=== PATIENT | male | born 1950 | race Caucasian/White ===

== ENCOUNTER → 2018-04-25 | Outpatient (CLI) | payer OTHER | END | disposition home or self-care (01) | LOC: OIH 13:27 | PROVIDERS: ATTEND Family Medicine | DX: Z13.6 Encounter for screening for cardiovascular disorders (principal) | CPT/HCPCS: 75571 ==

== ENCOUNTER 2020-07-16 16:15 | Observation (INO) | payer MEDICARE ==
[~2020-07-16] VITALS: Ht 177.8 cm; Wt 97.0 kg
[2020-07-16 16:30] LABS: BASOPHILS % (AUTO) 0.9 % (0.0-5.0); EOSINOPHILS % (AUTO) 3.8 % (0.0-8.0); HEMATOCRIT 43.8 % (42-54); LYMPHOCYTES % (AUTO) 24.6 % (21.0-51.0); MEAN CORPUSCULAR HEMOGLOBIN 32.9 pg (27.0-33.0); MEAN CORPUSCULAR HGB CONC 34.9 g/dL (32.0-36.0); MEAN CORPUSCULAR VOLUME 94.2 fL (79-99); MONOCYTES % (AUTO) 9.2 % (3.0-13.0); NEUTROPHILS % (AUTO) 61.3 % (40.0-77.0); PLATELET COUNT (AUTO) 172 K/uL (130-400); RED BLOOD CELL COUNT(AUTO) 4.65 MIL/uL (4.50-6.20); RED CELL DISTRIBUTION WIDTH 12.5 % (11.0-15.5); WHITE BLOOD COUNT (AUTO) 6.4 K/uL (4.8-10.8)
[2020-07-16] MEDS ORDERED: ASPIRIN 325 MG TABLET ONE (16:30)
[2020-07-16] MEDS ORDERED: NITROGLYCERIN 1GM/1 INCH PACKET TD ONE (16:35)
[2020-07-16 16:50] LABS: POTASSIUM 4.2 mmol/L (3.5-5.1)
[2020-07-16 16:57] LABS: ALBUMIN 3.9 g/dL (3.5-5.0); BILIRUBIN,TOTAL 0.4 mg/dL (0.2-1.0); TOTAL PROTEIN, SERUM 7.7 g/dL (6.0-8.3)
[2020-07-16 17:01] LABS: INR 1.05 (0.85-1.15); PROTHROMBIN TIME 11.2 SEC (9.6-11.6)
[2020-07-16 17:02] LABS: PARTIAL THROMBOPLASTIN TIME 25.8 SEC (26.3-35.5)
[2020-07-16 17:29] LABS: B-TYPE NATRIURETIC PEPTIDE 25 pg/mL (0-100)
[2020-07-16] MEDS ORDERED: SODIUM CHLORIDE 0.9% 1000ML 1,000 ML IV ONE (18:44)
[2020-07-16] MEDS ORDERED: ACETAMINOPHEN 325 MG TAB PO PRN (18:45)
[2020-07-16] MEDS ORDERED: NITROGLYCERIN 0.4 MG SL TAB SL PRN (18:45)
[2020-07-16] MEDS ORDERED: SODIUM CHLORIDE 0.9% 1000ML 1,000 ML IV SCH (18:45)
[2020-07-16] MEDS ORDERED: MORPHINE SULFATE 2 MG/ML 1ML SYG IVP PRN (18:45)
[2020-07-16 18:59] LABS: CHOLESTEROL 154 mg/dL (<200); HDL CHOLESTEROL 116 mg/dL (29-71); LDL DIRECT 88 mg/dL (0-99); TRIGLYCERIDES 52 mg/dL (30-200)
[2020-07-16 19:00] LABS: HEMOGLOBIN A1C 5.5 % (4.0-6.0)
[2020-07-16] MEDS ORDERED: FAMOTIDINE 20MG TAB 20 MG TAB ONE (20:47)
[2020-07-16] MEDS: FAMOTIDINE 20MG TAB 20 MG TAB PO SCH (21:00)
[2020-07-17 06:03] LABS: THYROID STIMULATING HORMONE 6.68 uIU/mL (0.36-3.74)
[2020-07-17] MEDS ORDERED: SODIUM CHLORIDE 0.9% 1000ML 1,000 ML IV ONE (07:24)
[2020-07-17] MEDS ORDERED: MORPHINE SULFATE 2 MG/ML 1ML SYG ONE (07:24)
[2020-07-17] MEDS ORDERED: ATORVASTATIN CALCIUM 20 MG TABLET PO SCH (07:45)
[2020-07-17] MEDS ORDERED: METOPROLOL TARTRATE 25 MG TAB ONE (08:57)
[2020-07-17] MEDS ORDERED: FAMOTIDINE 20MG TAB 20 MG TAB ONE ×2 (08:57→20:40)
[2020-07-17] MEDS ORDERED: ASPIRIN 81MG TAB.CHEW ONE (08:57)
[2020-07-17] MEDS: ASPIRIN 81MG TAB.CHEW PO SCH (09:00)
[2020-07-17] MEDS: NITROGLYCERIN 0.2 MG/HR PATCH TD SCH (09:00)
[2020-07-17] MEDS ORDERED: METOPROLOL TARTRATE 25 MG TAB PO SCH (09:00)
[2020-07-17] MEDS: FAMOTIDINE 20MG TAB 20 MG TAB PO SCH ×2 (09:00→21:00)
[2020-07-17] MEDS ORDERED: AMLODIPINE BESYLATE 5 MG TAB PO SCH (12:15)
[2020-07-17] MEDS: AMLODIPINE BESYLATE 5 MG TAB PO SCH (12:30)
[2020-07-17] MEDS ORDERED: AMLODIPINE BESYLATE 5 MG TAB ONE (13:39)
[2020-07-17] MEDS ORDERED: ACETAMINOPHEN 325 MG TAB ONE ×2 (13:40→19:47)
[2020-07-17 17:32] LABS: AMPHET/METH SCREEN,URINE NEGATIVE (NEGATIVE); BARBITURATE SCREEN, URINE NEGATIVE (NEGATIVE); BENZODIAZEPINES SCREEN,URINE NEGATIVE (NEGATIVE); CANNABINOID SCREEN,URINE NEGATIVE (NEGATIVE); COCAINE SCREEN,URINE NEGATIVE (NEGATIVE); OPIATE SCREEN,URINE NEGATIVE (NEGATIVE); PHENCYCLIDINE SCREEN,URINE NEGATIVE (NEGATIVE)
[2020-07-17] MEDS: ATORVASTATIN CALCIUM 20 MG TABLET PO SCH (21:00)
[2020-07-17] MEDS ORDERED: ENOXAPARIN SODIUM 1 MG/KG SQ SCH (21:00)
[2020-07-17] MEDS: ENOXAPARIN SODIUM 100 MG/1 ML SQ SCH (21:00)
[2020-07-17 23:45] VITALS: BP 147/94
[2020-07-18 04:00] VITALS: BP 121/75
[2020-07-18 07:30] VITALS: BP 137/86
[2020-07-18] MEDS: AMLODIPINE BESYLATE 5 MG TAB PO SCH (08:58)
[2020-07-18 09:00] LABS: HEMATOCRIT 44.4 % (42-54); MEAN CORPUSCULAR HEMOGLOBIN 32.7 pg (27.0-33.0); MEAN CORPUSCULAR HGB CONC 34.9 g/dL (32.0-36.0); MEAN CORPUSCULAR VOLUME 93.7 fL (79-99); RED BLOOD CELL COUNT(AUTO) 4.74 MIL/uL (4.50-6.20); RED CELL DISTRIBUTION WIDTH 12.3 % (11.0-15.5); WHITE BLOOD COUNT (AUTO) 5.2 K/uL (4.8-10.8)
[2020-07-18 09:12] LABS: POTASSIUM 4.6 mmol/L (3.5-5.1)
[2020-07-18 09:16] LABS: ALBUMIN 3.8 g/dL (3.5-5.0); BILIRUBIN,TOTAL 0.9 mg/dL (0.2-1.0); TOTAL PROTEIN, SERUM 7.6 g/dL (6.0-8.3)
[2020-07-18] MEDS ORDERED: REGADENOSON 0.4 MG/5 ML PF SYG IVP SCH (11:15)
[2020-07-18] MEDS ORDERED: NITROGLYCERIN 1GM/1 INCH PACKET TD ONE (15:58)
[2020-07-18 16:00] VITALS: BP 130/77
[2020-07-18] MEDS: FAMOTIDINE 20MG TAB 20 MG TAB PO SCH ×2 (16:04→21:00)
[2020-07-18] MEDS: ASPIRIN 81MG TAB.CHEW PO SCH (16:04)
[2020-07-18] MEDS: ENOXAPARIN SODIUM 100 MG/1 ML SQ SCH ×2 (16:06→21:00)
[2020-07-18] MEDS: NITROGLYCERIN 0.2 MG/HR PATCH TD SCH (17:10)
[2020-07-18 20:01] VITALS: BP 135/78
[2020-07-18] MEDS: ATORVASTATIN CALCIUM 20 MG TABLET PO SCH (21:00)
== END 2020-07-18 21:10 | disposition home or self-care (01) ==
LOC: EDH 16:15 → EDHIP 18:35 → 4CH 07-17 23:07
PROVIDERS: ADMIT Internal Medicine; ATTEND Internal Medicine
DX: R07.89 Other chest pain (principal); Z20.828 Contact with and (suspected) exposure to other viral communicable diseases; R06.00 Dyspnea, unspecified; R53.83 Other fatigue; I45.2 Bifascicular block; E66.9 Obesity, unspecified; R94.31 Abnormal electrocardiogram [ECG] [EKG]; I24.9 Acute ischemic heart disease, unspecified; I25.10 Atherosclerotic heart disease of native coronary artery without angina pectoris; I10 Essential (primary) hypertension; E78.5 Hyperlipidemia, unspecified; E78.00 Pure hypercholesterolemia, unspecified; I71.2 Thoracic aortic aneurysm, without rupture; M79.89 Other specified soft tissue disorders; Z82.49 Family history of ischemic heart disease and other diseases of the circulatory system; Z79.899 Other long term (current) drug therapy; Z88.8 Allergy status to other drugs, medicaments and biological substances; Z68.30 Body mass index [BMI] 30.0-30.9, adult
CPT/HCPCS: 36415 ×3; 71045; 71250; 78452; 80053 ×2; 80061; 80305; 82550; 82607; 82746; 83036; 83880; 84443; 84484 ×4; 85025; 85027; 85610; 85730; 87426; 93005 ×2; 93017; 93306; 93356; 93925; 93970; 96372; 99291; A9500 ×2; G0378 ×46; J1650; J2785; J7030 ×2; U0003; 96374

== ENCOUNTER 2022-04-25 10:42 | Emergency (ER) | payer OTHER, MEDICARE ==
[~2022-04-25] VITALS: Ht 177.8 cm; Wt 97.5 kg
[2022-04-25 11:20] LABS: BASOPHILS % (AUTO) 1.1 % (0.0-5.0); EOSINOPHILS % (AUTO) 3.4 % (0.0-8.0); HEMATOCRIT 43.7 % (42-54); LYMPHOCYTES % (AUTO) 26.1 % (21.0-51.0); MEAN CORPUSCULAR HEMOGLOBIN 32.2 pg (27.0-33.0); MEAN CORPUSCULAR HGB CONC 34.3 g/dL (32.0-36.0); MEAN CORPUSCULAR VOLUME 93.8 fL (79-99); MONOCYTES % (AUTO) 11.1 % (3.0-13.0); NEUTROPHILS % (AUTO) 58.1 % (40.0-77.0); PLATELET COUNT (AUTO) 245 K/uL (130-400); RED BLOOD CELL COUNT(AUTO) 4.66 MIL/uL (4.50-6.20); RED CELL DISTRIBUTION WIDTH 13.2 % (11.0-15.5); WHITE BLOOD COUNT (AUTO) 6.2 K/uL (4.8-10.8)
[2022-04-25] MEDS ORDERED: IOHEXOL 350 MG/ML 100ML INFUS..BTL IV ONE (11:24)
[2022-04-25 11:27] LABS: CREATININE 1.1 mg/dL (0.5-1.5); POTASSIUM 4.2 mmol/L (3.5-5.1)
[2022-04-25] MEDS ORDERED: CLOPIDOGREL 300MG TAB PO ONE (11:30)
[2022-04-25 11:33] LABS: ALBUMIN 3.8 g/dL (3.5-5.0); TOTAL PROTEIN, SERUM 7.6 g/dL (6.0-8.3)
[2022-04-25 11:38] LABS: APPEARANCE,URINE CLEAR (CLEAR); BILIRUBIN,URINE NEGATIVE (NEGATIVE); COLOR,URINE COLORLESS (YELLOW); GLUCOSE, URINE (UA) NEGATIVE (NEGATIVE); KETONES,URINE NEGATIVE (NEGATIVE); LEUKOCYTE ESTERASE ,URINE NEGATIVE Leu/uL (NEGATIVE); NITRATE,URINE NEGATIVE (NEGATIVE); OCCULT BLOOD,URINE NEGATIVE (NEGATIVE); PROTEIN,URINE NEGATIVE (NEGATIVE); UROBILINOGEN,URINE 0.2 mg/dL (0.2-1.0)
[2022-04-25 11:44] LABS: B-TYPE NATRIURETIC PEPTIDE 61 pg/mL (0-100)
[2022-04-25] MEDS ORDERED: ASPIRIN 81 MG EC TAB PO ONE (13:00)
[2022-04-25] MEDS ORDERED: ASPI-1005 PO (15:18)
[2022-04-25] MEDS ORDERED: CLOP-31 PO (15:19)
[2022-04-25 15:40] VITALS: BP 137/73
[2022-04-26] MEDS ORDERED: ASPIRIN 81MG CHEW TAB PO SCH (09:00)
== END 2022-04-25 15:43 | disposition home or self-care (01) ==
LOC: EDH 10:42
DX: R20.2 Paresthesia of skin (principal); G43.909 Migraine, unspecified, not intractable, without status migrainosus; Z88.8 Allergy status to other drugs, medicaments and biological substances
CPT/HCPCS: 99285; 70496; 70551; 71045; 82550; 84484; 80053; 83880; 85025; 82948; 81003; 36415; 70498; 93005; 70450; Q9967

== ENCOUNTER → 2023-06-10 | Outpatient (CLI) | payer MEDICARE ==
[~2023-06-10] MED LIST: ASPI-1005 PO; CLOP-31 PO
== END | disposition home or self-care (01) ==
LOC: RAH 13:56
PROVIDERS: ATTEND Nurse Practitioner Family
DX: M19.012 Primary osteoarthritis, left shoulder (principal); M25.512 Pain in left shoulder; M75.102 Unspecified rotator cuff tear or rupture of left shoulder, not specified as traumatic; M47.812 Spondylosis without myelopathy or radiculopathy, cervical region; M48.02 Spinal stenosis, cervical region; M50.322 Other cervical disc degeneration at C5-C6 level
CPT/HCPCS: 72141; 73221

== ENCOUNTER 2025-01-19 09:50 | Observation (INO) | payer MEDICARE ==
[~2025-01-19] VITALS: Ht 177.8 cm; Wt 91.2 kg
[2025-01-19 08:00] VITALS: O2SAT 98
--- NOTE | 2025-01-19 10:17 | ERN ---
General Chief Complaint: Chest Pain Stated Complaint: CHEST PAIN Time Seen by MD: 09:53 Source: patient History of Present Illness Initial Comments IN HIS IS A 74-YEAR-OLD MALE COMING IN COMPLAINING OF EPIGASTRIC PAIN. PATIENT STATES THAT THE PAIN BEGAN PRIOR TO ARRIVAL 30 MINUTES. HE ALSO STATES THAT HE HAD DOES HAS A HISTORY OF PACEMAKER PLACEMENT RECENTLY SAW DR. BE FOR CHEST PAIN. Allergies: Coded Allergies: allopurinol (Unverified Allergy, Severe, ANAPHYLAXIS, 07/18/20) PER PATIENT THIS MEDICATION NEARLY KILLED HIM No Known Drug Allergies (Verified Allergy, Unknown, 07/16/20) Home Meds Active Scripts Clopidogrel Bisulfate (Plavix) 75 Mg Tablet, 75 MG PO DAILY for 30 Days, #30 TAB Prov:CHECO FLORES MD 04/25/22 Aspirin (ASPIRIN 81MG CHEW TAB) 81 Mg Tab.chew, 81 MG PO DAILY, #30 TAB.CHEW Prov:CHECO FLORES MD 04/25/22 Past Medical History Past Medical History: CAD Medical History Other: HERNIA Past Surgical History: Pacer/AICD Social History Social History: Lives with family ROS Dictation CONSTITUTIONAL: NO CHILLS, NO FEVER, NO WEAKNESS, NO DIAPHORESIS, NO MALAISE. HEAD/FACE: NO SIGNS OF TRAUMA. EENT: NO EYE PAIN, NO BLURRED VISION, NO TEARING, NO DOUBLE VISION, NO EAR PAIN, NO EAR DISCHARGE, NO NOSE PAIN, NO NASAL CONGESTION, NO THROAT PAIN, NO THROAT SWELLING, NO MOUTH PAIN. RESPIRATORY: NO COUGH, NO ORTHOPNEA, NO SOB, NO STRIDOR, NO WHEEZING. CARDIOVASCULAR: CHEST PAIN, NO EDEMA, NO PALPITATIONS, NO SYNCOPE. GASTROINTESTINAL/ABDOMINAL: NO ABDOMINAL PAIN, NO CONSTIPATION, NO DIARRHEA, NO NAUSEA, NO VOMITING. GENITOURINARY: NO ABNORMAL DISCHARGE, NO DYSURIA, NO FREQUENT URINATION, NO HEMATURIA. NO COMPLAINTS OF PAIN IN THE GENITALS. MUSCULOSKELETAL: NO BACK PAIN, NO GOUT, NO JOINT PAIN, NO JOINT SWELLING, NO MUSCLE PAIN, NO MUSCLE STIFFNESS, NO NECK PAIN. INTEGUMENTARY: NO CHANGE IN COLOR, NO CHANGE IN HAIR/NAILS, NO DRYNESS, NO LESION, NO LUMPS, NO RASH. NEUROLOGICAL/PSYCH: NO ANXIETY, NOT DEPRESSED, NO EMOTIONAL PROBLEM, NO HEADACHE, NO NUMBNESS, NO PRE-EXISTING DEFICIT, NO HISTORY OF SEIZURES, NO TREMORS, NO WEAKNESS. HEMATOLOGIC/LYMPHATIC: NOT ANEMIC, NO HISTORY OF BLOOD CLOTS, NO APPARENT BLEEDING, NO BRUISING, GLANDS NOT SWOLLEN. ALL SYSTEMS NEGATIVE, EXCEPT NOTED. Physical Exam Physical Exam Dictation VITAL SIGNS: REVIEWED. GENERAL APPEARANCE: ALERT, ORIENTED X3, NO ACUTE DISTRESS, OBESE. HEAD AND FACE: NON-TRAUMATIC. EYES: PERRL, PINK CONJUNCTIVAS, EYELID NO TRAUMA, ANTERIOR CHAMBER CLEAR. EARS: PINNAS INTACT AND NO SIGNS OF TRAUMA OR ERYTHEMA. EAR CANALS CLEAR AND NO DISCHARGE. TMS NO ERYTHEMA. NOSE: NO DISCHARGE, NO BLEEDING. OROPHARYNX: MOUTH NORMAL, TEETH NO CARIES, TONGUE PINK. PHARYNX CLEAR, NO ERYTHEMA. TONSILS NO EXUDATES, NO ABSCESSES NOTED. MUCOUS MEMBRANE MOIST. NECK: SUPPLE, NON-TENDER, NO THYROMEGALY, NO MASSES, NO JVD, NO BRUITS. BREAST: DEFERRED. CHEST: NO TENDERNESS, NO CREPITUS, NO PARADOXICAL MOVEMENT, NO RETRACTIONS. LUNGS: CLEAR, WELL-VENTILATED, SYMMETRIC, NO RALES, NO WHEEZING, NO RHONCHI, NO STRIDOR, GOOD BREATH SOUNDS BILATERALLY. HEART: REGULAR RATE, REGULAR RHYTHM, NO MURMUR, NO GALLOPS. VASCULAR: NO PERIPHERAL EDEMA. ABDOMEN: SOFT, POSITIVE BOWEL SOUNDS, NONDISTENDED, NO GUARDING, NONTENDER, NO REBOUND, NO MASSES NO HEPATOMEGALY, NO SPLENOMEGALY, NO MUJICA'S SIGN, NO HERNI . RECTAL: DEFERRED. GENITAL: DEFERRED. NEUROLOGICAL: NORMAL SPEECH, GROSS MOTOR FUNCTION INTACT, GROSS SENSORY FUNCTION INTACT. MUSCULOSKELETAL: NECK NONTENDER, FULL RANGE OF MOTION, BACK NONTENDER, FULL RANGE OF MOTION. EXTREMITIES: NONTENDER, FULL RANGE OF MOTION. SKIN: COLOR PINK, DRY, NO TURGOR, NO RASH, NO LACERATIONS, NO ABRASIONS, NO CONTUSIONS. LYMPHATICS: DEFERRED. Results Laboratory and Microbiology Lab and Micro Result Laboratory Tests Test 01/19/25 10:19 White Blood Count 7.5 K/uL (4.8-10.8) Red Blood Count 4.46 MIL/uL (4.50-6.20) L Hemoglobin 13.5 g/dL (14.0-18.0) L Hematocrit 42.2 % (42-54) Mean Corpuscular Volume 94.6 fL (79-99) Mean Corpuscular Hemoglobin 30.3 pg (27.0-33.0) Mean Corpuscular Hemoglobin Concent 32.0 g/dL (32.0-36.0) Red Cell Distribution Width 15.4 % (11.0-15.5) Platelet Count 378 K/uL (130-400) Mean Platelet Volume 11.5 fL (7.5-10.5) H Immature Granulocyte % (Auto) 0.3 % (0-1) Neutrophils (%) (Auto) 76.9 % (40.0-77.0) Lymphocytes (%) (Auto) 11.7 % (21.0-51.0) L Monocytes (%) (Auto) 5.7 % (3.0-13.0) Eosinophils (%) (Auto) 4.3 % (0.0-8.0) Basophils (%) (Auto) 1.1 % (0.0-5.0) Neutrophils # (Auto) 5.8 K/uL (1.8-7.7) Lymphocytes # (Auto) 0.9 K/uL (1.0-4.8) L Monocytes # (Auto) 0.4 K/uL (0.1-1.0) Eosinophils # (Auto) 0.32 K/uL (0.00-0.70) Basophils # (Auto) 0.08 K/uL (0.00-0.20) Absolute Immature Granulocyte (auto 0.02 K/uL (0-1) Nucleated Red Blood Cells 0.0 % (0.0-0.19) Prothrombin Time 11.2 SEC (9.6-11.6) Prothromb Time International Ratio 1.06 (0.85-1.15) Activated Partial Thromboplast Time 26.8 SEC (26.3-35.5) Sodium Level 139 mmol/L (136-145) Potassium Level 4.6 mmol/L (3.5-5.1) Chloride Level 103 mmol/L (101-111) Carbon Dioxide Level 27 mmol/L (21-32) Blood Urea Nitrogen 14 mg/dL (7-18) Creatinine 0.9 mg/dL (0.5-1.3) Glomerular Filtration Rate Calc 89 mL/min (>90) Random Glucose 115 mg/dL (70-105) H Total Calcium 9.1 mg/dL (8.5-10.1) Magnesium Level 2.10 mg/dL (1.80-2.40) Total Creatine Kinase 76 U/L (21-232) Troponin I High Sensitivity 7 ng/L (4-75) Labs Reviewed?: Yes EKG/XRAY/US/CT/MRI EKG Comment 01/19/2025 TIME 9:55 A.M. VENTRICULAR RATE [address] [place] [address] WAVE ELEVATION OR DEPRESSION MDM MDM: DIFFERENTIAL DIAGNOSIS: Chest pain, ACS, NSTEMI, RATIONALE: TESTS CONSIDERED AND ORDERED SECONDARY TO SHARED DECISION MAKING INCLUDE: PREVIOUS OUTSIDE RECORDS REVIEWED: OLD ER VISITS. RISK OF COMPLICATION AND/OR MORBIDITY OR MORTALITY OF PATIENT MANAGEMENT: NONE MEDICATIONS-PER MEDICATION RECONCILIATION NEED FOR HOSPITALIZATION: PATIENT DOES MEET CRITERIA FOR HOSPITALIZATION. NEED FOR EMERGENCY MAJOR/MINOR SURGERY: NO THERE ARE NO SOCIAL CONCERNS WITH THIS PATIENT. PRESCRIPTION DRUG MANAGEMENT PRESCRIPTIONS WILL INCLUDE SYMPTOMATIC CARE PATIENT'S PRIOR EXTERNAL MEDICAL RECORDS FROM OTHER ER VISITS WERE REVIEWED BY ME INDICATED. PRIOR TESTING AND RESULTS FROM PREVIOUS VISITS WERE REVIEWED. PRIOR TESTS WERE TAKEN INTO ACCOUNT WITH MEDICAL DECISION MAKING AND RESOURCE UTILIZATION, INDEPENDENT HISTORIAN/HISTORIANS WERE USED TO OBTAIN COMPLETE MEDICAL HISTORY. I INDEPENDENTLY INTERPRETED THE TEST THAT WERE PERFORMED, RESULTS WERE REVIEWED BY ME AND CONSIDERED FINDINGS ON RADIOLOGY IF ORDERED. MEDICAL MANAGEMENT AND EXAMINATION INTERPRETATION DISCUSSIONS WERE HAD BY ME WITH OTHER QUALIFIED HEALTHCARE PROFESSIONALS INDICATED FOR THE PATIENT'S CARE. Patient will be admitted under the care of hospitalist group for ongoing management. ED Course Orders Procedure Category Date Status Time Cbc With Differential LAB 01/19/25 Complete 09:59 Prothrombin Time With LAB 01/19/25 Complete INR 09:59 Chest 1vw RAD 01/19/25 Resulted 09:59 12 Lead Ekg Tracing- EKG 01/19/25 Complete Technical 09:59 Magnesium LAB 01/19/25 Complete 09:59 Creatine Kinase, Total LAB 01/19/25 Complete 09:59 Troponin I High LAB 01/19/25 Complete Sensitivity 09:59 Partial LAB 01/19/25 Complete Thromboplastin Time 09:59 Basic Metabolic Panel LAB 01/19/25 Complete 09:59 Troponin I High LAB 01/19/25 In Process Sensitivity 11:18 Nitroglycerin 1gm PHA 01/19/25 Complete Oint (Nitroglycerin 1g 11:30 Current Medications Medications (Trade) Dose Ordered Sig/Amos Route PRN Reason Start Time Stop Time Status Last Admin Dose Admin Nitroglycerin (Nitroglycerin 1gm Oint) 1 inch ONCE ONCE TD 01/19/25 11:30 01/19/25 11:31 DC 01/19/25 11:30 Vital Signs Date Time Temp Pulse Resp B/P (MAP) Pulse Ox O2 Delivery O2 Flow Rate FiO2 01/19/25 10:15 98.1 73 18 145/74 99 Room Air* 0 21 01/19/25 09:54 98.8 73 20 138/73 100 Room Air 0 DX & DISP Disposition: Inpatient Decision to Admit Time: 11:52 Departure Impression: Primary Impression: History of CAD (coronary artery disease) Additional Impression: Chest pain Condition: Stable Referrals: OBDULIA TIPTON (PCP) SHAMA MENG MD Jan 19, 2025 10:17
--- NOTE | 2025-01-19 10:21 | EKG ---
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
[2025-01-19 10:28] LABS: IMMATURE GRANULOCYTE ABSOLUTE 0.02 K/uL (0-1); NUCLEATED RED BLOOD CELLS 0.0 % (0.0-0.19); PLATELET COUNT (AUTO) 378 K/uL (130-400); RED BLOOD CELL COUNT(AUTO) 4.46 MIL/uL (4.50-6.20); RED CELL DISTRIBUTION WIDTH 15.4 % (11.0-15.5); WHITE BLOOD COUNT (AUTO) 7.5 K/uL (4.8-10.8)
--- NOTE | 2025-01-19 10:30 | NUR ---
RECEIVED REPORT HAND OFF FROM GUILLERMO AMARAL.
--- NOTE | 2025-01-19 10:30 | NUR ---
REPORT HAND OFF GIVEN TO JORDI AMARAL.
[2025-01-19 10:35] LABS: CREATININE 0.9 mg/dL (0.5-1.3); GLOMERULAR FILTR. RATE CALC 89.0 mL/min (>90); GLUCOSE,RANDOM 115.0 mg/dL (70-105); SODIUM SERUM 139.0 mmol/L (136-145); UREA NITROGEN, BLOOD 14.0 mg/dL (7-18)
[2025-01-19 10:37] LABS: INR 1.06 (0.85-1.15)
[2025-01-19 10:39] LABS: CREATINE KINASE, TOTAL 76.0 U/L (21-232)
[2025-01-19 11:00] VITALS: BP 140/71; PULSE 67; RESP 15; TEMP 97.8
--- NOTE | 2025-01-19 11:12 | HMCIMG ---
EXAM: CR Chest, 1 View. CLINICAL HISTORY: CP COMPARISON: Radiograph dated April 25, 2022 FINDINGS: LUNGS: The lungs show no infiltrate or other acute finding. Mild bibasilar airspace disease may reflect atelectasis. PLEURAL SPACES: No evidence of pleural effusion or pneumothorax. MEDIASTINUM: The cardiomediastinal silhouette is within normal limits. Rhythm monitoring device overlies the cardiac silhouette. BONES: No acute osseous abnormality. IMPRESSION: 1. No acute cardiopulmonary findings. /[place]
[2025-01-19] MEDS: NITROGLYCERIN 1GM OINT 1 INCH/1GM TD ONE (11:30)
--- NOTE | 2025-01-19 11:30 | NUR ---
NOTIFIED ALEXANDRA GUIDRY OF CARDIOLOGY CONSULT. PENDING TO SEE PATIENT.
[2025-01-19] MEDS ORDERED: PoTASSium chloRIDE 20MEQ ER 20 MEQ ERTAB PO PRN (12:00)
[2025-01-19] MEDS ORDERED: PoTASSium chl 10% ELIXIR 20MEQ 20 MEQ/15 ML UDCUP PO PRN (12:00)
[2025-01-19] MEDS ORDERED: MAGNESIUM 2GM PREMIX 50ML 50 ML IV PRN (12:00)
[2025-01-19] MEDS ORDERED: LACTULOSE 20 GM/30 ML UDCUP PO PRN (12:00)
[2025-01-19] MEDS: NITROGLYCERIN 1GM OINT 1 INCH/1GM TD SCH (12:04)
[2025-01-19] MEDS ORDERED: NITROGLYCERIN 0.4 MG SL TAB SL PRN (12:30)
--- NOTE | 2025-01-19 12:38 | HP ---
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 Leblanc This is a 74-year-old male with a significant medical history of CAD with heart stents x2, hyperlipidemia, pacemaker presents in ED with chief complaints of chest pain. Onset started earlier this morning 8:00 a.m. patient reports he was up for the morning sitting we he started with chest pain. Loca tion midsternal pain radiates across to each arm. Positive for diaphoretic while he was in pain. Denies shortness a breath, palpitations, dizziness, nausea and vomiting. Reports taking nitroglycerin sublingually has some improvement prior coming to ED. Patient reports since yesterday he was feeling due he usually does4 miles on his bicycle yesterday he was only able to to [place] he was not feeling his normal. ER workup first set of troponin negative. Blood pressure systolic pressure: 170's patient stated he usually run in the 120's. Patient was seen in ED 11 The patient is alert oriented x3 very pleasant he is on room air. dull chest pain. REVIEW OF SYSTEMS A12 point ROS was obtained all relevant positives documented otherwise ROS n egative PAST MEDICAL HISTORY: [ ] Refer to HPI PAST SURGICAL HISTORY: [ ] X2 stents Pacemaker [address] Leblanc PAST SOCIAL HISTORY: [ ] Denies smoking tobacco products and alcohol use FAMILY HISTORY: [ ] Noncontributory Coded Allergies: allopurinol (Unverified Allergy, Severe, ANAPHYLAXIS, 07/18/20) PER PATIENT THIS MEDICATION NEARLY KILLED HIM No Known Drug Allergies (Verified Allergy, Unknown, 07/16/20) PHYSICAL EXAM GENERAL APPEARANCE: The patient is awake, alert, and oriented, in no acute cardiopulmonary distress. NEUROLOGICAL: Cranial nerves II-XII grossly intact. Motor is 5/5 in bilateral upper and lower extremities proximal to distal. No sensory deficits. HEENT: Face is symmetric. Pupils are equal and reactive. Extraocular movements are intact. NECK: Supple. No JVD. No thyromegaly. No submental, submandibular, pre-/post auricular, occipital or supraclavicular lymphadenopathy. CHEST: Normal chest expansion. No Telemetry. LUNGS: Absence of any rales, rhonchi or any wheezing. CARDIOVASCULAR: Regular. S1 and S2 normal. No appreciable rubs, murmurs or gallops. ABDOMEN: Soft, nontender, and nondistended. There is no rebound, voluntary guarding, or rigidity. : Deferred. No Victoria. EXTREMITIES: Non-edematous and not cyanotic. No clubbing. Good capillary refill. SKIN: No skin breakdown. Vital Sign (Last 24 Hours) 01/19/25 01/19/25 10:15 11:00 Temp 97.9 Pulse 67 Resp 15 B/P (MAP) 140/71 Pulse Ox 99 O2 Delivery Room Air O2 Flow Rate 0 FiO2 21 LABS: Laboratory: Test 01/19/25 10:19 Range/Units White Blood Count 7.5 4.8-10.8 K/uL Red Blood Count 4.46 L 4.50-6.20 MIL/uL Hemoglobin 13.5 L 14.0-18.0 g/dL Hematocrit 42.2 42-54 % Mean Corpuscular Volume 94.6 79-99 fL Mean Corpuscular Hemoglobin 30.3 27.0-33.0 pg Mean Corpuscular Hemoglobin Concent 32.0 32.0-36.0 g/dL Red Cell Distribution Width 15.4 11.0-15.5 % Platelet Count 378 130-400 K/uL Mean Platelet Volume 11.5 H 7.5-10.5 fL Immature Granulocyte % (Auto) 0.3 0-1 % Neutrophils (%) (Auto) 76.9 40.0-77.0 % Lymphocytes (%) (Auto) 11.7 L 21.0-51.0 % Monocytes (%) (Auto) 5.7 3.0-13.0 % Eosinophils (%) (Auto) 4.3 0.0-8.0 % Basophils (%) (Auto) 1.1 0.0-5.0 % Neutrophils # (Auto) 5.8 1.8-7.7 K/uL Lymphocytes # (Auto) 0.9 L 1.0-4.8 K/uL Monocytes # (Auto) 0.4 0.1-1.0 K/uL Eosinophils # (Auto) 0.32 0.00-0.70 K/uL Basophils # (Auto) 0.08 0.00-0.20 K/uL Absolute Immature Granulocyte (auto 0.02 0-1 K/uL Nucleated Red Blood Cells 0.0 0.0-0.19 % Prothrombin Time 11.2 9.6-11.6 SEC Prothromb Time International Ratio 1.06 0.85-1.15 Activated Partial Thromboplast Time 26.8 26.3-35.5 SEC Sodium Level 139 136-145 mmol/L Potassium Level 4.6 3.5-5.1 mmol/L Chloride Level 103 101-111 mmol/L Carbon Dioxide Level 27 21-32 mmol/L Blood Urea Nitrogen 14 7-18 mg/dL Creatinine 0.9 0.5-1.3 mg/dL Glomerular Filtration Rate Calc 89 >90 mL/min Random Glucose 115 H 70-105 mg/dL Total Calcium 9.1 8.5-10.1 mg/dL Magnesium Level 2.10 1.80-2.40 mg/dL Total Creatine Kinase 76 21-232 U/L Troponin I High Sensitivity 7 4-75 ng/L DIAGNOSTICS / RADIOLOGY: [ ] ASSESSMENT: Atypical chest pain POA Hypertension Urgency POA CAD with Heart stent POA Hyperlipidemia POA adult obesity Class II PLAN: Admit: Medical with tele monitoring condition: Guarded Status: Full code IVF: p Consultants cardiology's ACS protocol : Aspirin 81 mg now then daily, will start Metoprolol 12.5 mg bid Atorvastatin 20mg po HS nitroglycerin 0.4 gm SL as needed for chest pain Troponin x1 Imaging echo to elevate LV function Labs cbc, cmp, mag+ TSH, lipid panel Replace electrolytes as needed as per protocol to keep potassium above 4.0 magnesium 2.0. Home medications pending to be reviewed by RN nurse. PRN: MEDICATIONS Tylenol 650 mg po every 4 hrs for fever zofran 4 mg IV every 6 hrs for n/v Hydralazine 5 mg IV every 4 hrs systolic pressure > 160 bowel regiment: lactulose 20 gm PO BID PRN constipation Pain management: morphine 2mg IV PRN chest pain oxygen supplemental as needed for chest pain Supportive measures: DVT ppx, GI ppx all questions answered time spent: > 35 min Supervising MD: Dr. Brady Hummel c/d This document was generated in part using voice recognition software, occasional wrong word or sound alike substitutions may have occurred due to the inherent limitations of voice recognition software. Read the chart carefully and recognize using context, where the substitutions have occurred. Although every effort was made to edit the content, transcription coordinator and typing errors may occur ADVANCED CARE PLANNING 1. Which of the following were discussed? Hospice Care - Yes / No Therapeutic options - Yes / No Advance Directives - Yes / No Other discussions - 2. Discussed with who? 3. Voluntary nature of this service was explained to the patient? Yes / No 4. Amount of time spent - 5. Reviewed by Physician? (if this service was performed by NPP) Yes / No ATTESTATION BY PHYSICIAN I have seen and examined the patient. I reviewed the documentation, medical decision making, and treatment plan as noted by the mid-level provider above. I agree with the findings and plan of care. GREG ALONSO MD, ELIZABETH NP Jan 19, 2025 12:38
[2025-01-19] MEDS: ASPIRIN 81MG CHEW TAB PO ONE (12:48)
[2025-01-19 12:57] LABS: APPEARANCE,URINE CLEAR (CLEAR); GLUCOSE, URINE (UA) NEGATIVE (NEGATIVE); LEUKOCYTE ESTERASE ,URINE NEGATIVE Leu/uL (NEGATIVE); NITRATE,URINE NEGATIVE (NEGATIVE); OCCULT BLOOD,URINE NEGATIVE (NEGATIVE)
[2025-01-19 13:03] LABS: ADD UA MICROSCOPIC NO
--- NOTE | 2025-01-19 13:55 | NUR ---
DCP:HOME Sw met with pt who lives with Belinda Miner [phone] at [facility] [facility] [place], in their mobile home. Home has steps with rails to enter their home. Prior to admission, pt reports he was independent of his own self care, ambulation, transportation, and assisted with home management and meal prep. They have no in home care services, HH or HD. discussed dcp. Pt stated he is not sure what plan of care is yet, waiting to see MD and discuss. Pt is hopeful he can return home at ut, but he is open to MD recommendations. Pt uses [facility] for rx needs and PCP is Danial Ace. CM to follow and assist as needed, Addendum: 01/19/25 at 1403 by JANINE BASSETT Amended: Links added.
--- NOTE | 2025-01-19 15:00 | NUR ---
ALL MEDICATIONS HAVE BEEN RECONCILED.
[2025-01-19] MEDS ORDERED: ATOR10 PO (15:18)
[2025-01-19 16:00] VITALS: BP 153/81; PULSE 72; RESP 16; TEMP 97.8
--- NOTE | 2025-01-19 17:30 | NUR ---
GAVE REPORT NURSE CLIF ON THIRD FLOOR.
[2025-01-19 18:02] VITALS: BP 159/82; PULSE 79; RESP 15; TEMP 97.8
[2025-01-19 18:20] VITALS: BP 152/76; PULSE 85; RESP 19; TEMP 97.4; O2SAT 100
--- NOTE | 2025-01-19 18:28 | NUR ---
PATIENT TRANSFERRED TO ROOM 316. PATIENT TOOK ALL BELONGINGS WITH HIM.
[2025-01-19 20:00] VITALS: BP 141/79; PULSE 84; RESP 20; TEMP 97.5; O2SAT 98
--- NOTE | 2025-01-19 20:05 | HMCSR ---
APPROVED REPORT EXAM: Two-dimensional and M-mode echocardiogram with Doppler and color Doppler. INDICATION ICD: Chest Pain 2D Dimensions RVDd2.9 cmLVEF(%)57.0 (>50%)LVED Vol(simp.)110.0 mL IVSd1.1 (0.7-1.1cm)FS(%)30 %LVES Vol(simp.)52.0 mL LVDd4.5 (3.8-5.6cm)LA (2D)3.7 (1.6-4.0cm)LVEF(%, simp.)53 % PWd1.1 (0.7-1.1cm)Ao Root(2D)4.1 (2.0-3.7cm)LA ESV INDEX (BP)22.60 mL/m2 IVSs1.1 cmLVOT diam2.6 (1.8-2.4cm) LVDs3.1 (2.5-4.0cm)IVC diam1.3 cm PWs1.1 cm Deformation Strain Apical 4-19.5 % Apical 2-18.4 % Apical 3-22.5 % Global Strain-20.1 % M-Mode Dimensions EPSS0.9 cm LA (MM)3.6 (1.6-4.0cm) Ao Root(MM)4.6 (2.0-3.7cm) Aortic Valve AoV Vmax1.1 m/Baldo Peak GR4.5 mmHgLVOT Vmax1.0 m/s AoV VTI0.2 mAo Mean GR2.6 mmHgLVOT VTI0.21 m USAMA (VMAX)4.89 cm2AVA (VTI) 5.5 cm2 Mitral Valve MV E Vmax77.5 cm/sDECEL Snuc872 ms MV A Vmax98.7 cm/sP 1/2 T55 ms E/A ratio0.8MVA (PHT)4.0 cm2 TDI E/E' [place]37.3E/E' [id number] Medial E' Peak V5.83 cm/sLateral E' Peak V6.79 cm/s Pulmonary Valve PV Vmax1.0 m/sPV VTI0.22 mPV Mean GR2.2 mmHg PV Peak GR3.7 mmHg Tricuspid Valve RAP (EST) 3 mmHgRVSP3.0 mmHg Left Ventricle The left ventricle is normal size. GLS -20.0% There is normal left ventricular wall thickness. LVEF i s 50-55%. The left ventricular diastolic function is normal. Right Ventricle The right ventricle is normal size. The right ventricular systolic function is normal. Atria The left atrium size is normal. The right atrium size is normal. Aortic Valve The aortic valve is normal in structure. No aortic regurgitation is present. There is no aortic valvu lar stenosis. Mitral Valve Mitral valve leaflets open well. Posterior mitral leaflet is mildly calcified. Mitral regurgitation i s trace. There is no mitral valve stenosis. Tricuspid Valve The tricuspid valve is normal in structure. There is no tricuspid valve regurgitation noted. Pulmonic Valve The pulmonary valve is normal in structure. There is no pulmonic valvular regurgitation. Great Vessels The aortic root measures 4.1 cm in maximum AP dimension. The IVC is normal in size and collapses >50% with inspiration. Pericardium There is no pericardial effusion. Other Information Quality : AdequateRhythm : NSR Conclusion LVEF is 50-55%. The left ventricular diastolic function is normal. The aortic root measures 4.1 cm in maximum AP dimension.
--- NOTE | 2025-01-19 21:35 | CONS ---
CONSULT NOTE: REASON FOR CONSULT Chest pain HISTORY OF PRESENT ILLNESS This is a pleasant 74-year male with past medical history as below presented with complaints of chest pain, no history of coronary disease status post PCI about a year and a half with complicating dissection, perforation and pericardiocentesis. This was in [facility] per report. Here for further evaluation of chest pain PAST MEDICAL HISTORY, ALLERGIES See below REVIEW OF SYSTEMS 12 point review of system was negative. Vitals See chart PHYSICAL EXAM Alert and oriented x 3 Nonicteric nontraumatic Regular rate and rhythm, no murmurs Clear to auscultation bilaterally pulmonary Abdomen nontender Rectal deferred Skin no rash neurological no focal deficits Extremities no edema ASSESSMENT CHEST PAIN Atypical chest pain Negative troponins Previous history of coronary disease status post PCI with complicating perforation and pericardiocentesis Normal EF echocardiogram, 12/2024 DEVICE IN [facility]ITU Previous history of pacemaker placement HYPERLIPIDEMIA, HYPERTENSION, OBESITY CORE MEASURES Pending. OTHER MEDICAL PROBLEMS Reviewed PLAN 01/19/2025 will plan for stress testing tomorrow to further evaluate for ischemia. Will review records from [facility] as well. Seen and examined 01/19/2025 around 8 PM. ATTESTATION I was involved substantial in the care of the patient Number of complexity of problems addressed 1 acute illness with systemic features Amount and or complexity of data Review of prior external notes from each unique source 2+ Ordering of each unique test 0 Review of results of each unique test 2+ Assessment requiring independent historians no Dependent interpretation of test performed by another MD no Discussion of management or test interpretation with external MD no Risk status moderate DANGELO MORRIS MD Jan 19, 2025 21:35
[2025-01-20] VITALS: BP 115/64; PULSE 71; RESP 12; TEMP 97.9
[2025-01-20 04:00] VITALS: BP 151/73; PULSE 64; RESP 16; TEMP 98.3
[2025-01-20 05:53] LABS: IMMATURE GRANULOCYTE ABSOLUTE 0.03 K/uL (0-1); NUCLEATED RED BLOOD CELLS 0.0 % (0.0-0.19); PLATELET COUNT (AUTO) 351 K/uL (130-400); RED BLOOD CELL COUNT(AUTO) 3.81 MIL/uL (4.50-6.20); RED CELL DISTRIBUTION WIDTH 15.5 % (11.0-15.5); WHITE BLOOD COUNT (AUTO) 8.0 K/uL (4.8-10.8)
[2025-01-20 06:18] LABS: ASPARTATE AMINOTRANSFERASE 12.0 U/L (10-37); CREATININE 0.8 mg/dL (0.5-1.3); GLOMERULAR FILTR. RATE CALC 92.0 mL/min (>90); GLUCOSE,RANDOM 95.0 mg/dL (70-105); LDL DIRECT 81.0 mg/dL (0-99); SODIUM SERUM 140.0 mmol/L (136-145); TOTAL PROTEIN, SERUM 6.6 g/dL (6.0-8.3); UREA NITROGEN, BLOOD 13.0 mg/dL (7-18)
[2025-01-20 08:00] VITALS: BP 141/79; PULSE 66; RESP 18; TEMP 97.5
[2025-01-20] MEDS: ASPIRIN 81 MG EC TAB PO SCH (08:39)
--- NOTE | 2025-01-20 09:00 | PN ---
[facility] PROGRESS NOTE Date of Service: Jan 20, 2025 Time of Service: 08:58 SUBJECTIVE: [ ] PCP: Dr Db Celaya admission date: 01/19/25 CC: Chest pain Primary toxicology teacher's Dr. Leblanc This is a 74-year-old male with a significant medical history of CAD with heart stents x2, hyperlipidemia, pacemaker presents in ED with chief complaints of chest pain. Onset started earlier this morning 8:00 a.m. patient reports he was up for the morning sitting we he started with chest pain. Location midsternal pain radiates across to each arm. Positive for diaphoretic while he was in pain. Denies shortness a breath, palpitations, dizziness, nausea and vomiting. Reports taking nitroglycerin sublingually has some improvement prior coming to ED. Patient reports since yesterday he was feeling due he usually does4 miles on his bicycle yesterday he was only able to to [place] he was not feeling his normal. ER workup first set of troponin negative. Blood pressure systolic pressure: 170's patient stated he usually run in the 120's. 01/20 The patient is scheduled for Lexiscan today, appreciate toxicology teacher's input. We will wait for results if patient will need further intervention. Primary nurse reports no acute events overnight REVIEW OF SYSTEMS A12 point ROS was obtained all relevant positives documented otherwise ROS negative PHYSICAL EXAM GENERAL APPEARANCE: The patient is awake, alert, and oriented, in no acute cardiopulmonary distress. NEUROLOGICAL: Cranial nerves II-XII grossly intact. Motor is 5/5 in bilateral upper and lower extremities proximal to distal. No sensory deficits. HEENT: Face is symmetric. Pupils are equal and reactive. Extraocular movements are intact. NECK: Supple. No JVD. No thyromegaly. No submental, submandibular, pre- /postauricular, occipital or supraclavicular lymphadenopathy. CHEST: Normal chest expansion. No Telemetry. LUNGS: Absence of any rales, rhonchi or any wheezing. CARDIOVASCULAR: Regular. S1 and S2 normal. No appreciable rubs, murmurs or gallops. ABDOMEN: Soft, nontender, and nondistended. There is no rebound, voluntary guarding, or rigidity. : Deferred. No Victoria. EXTREMITIES: Non-edematous and not cyanotic. No clubbing. Good capillary refill. SKIN: No skin breakdown. Vital Signs (last 8hr) Date Time Temp Pulse Resp B/P (MAP) Pulse Ox O2 Delivery O2 Flow Rate FiO2 01/20/25 08:00 97.5 66 18 141/79 98 Room Air 01/20/25 04:00 98.2 64 16 151/73 96 Room Air LABS: Laboratory: Test 01/20/25 05:37 01/19/25 14:01 01/19/25 10:55 01/19/25 10:19 Range/Units White Blood Count 8.0 4.8-10.8 K/uL Red Blood Count 3.81 L 4.50-6.20 MIL/uL Hemoglobin 11.7 L 14.0-18.0 g/dL Hematocrit 34.9 L 42-54 % Mean Corpuscular Volume 91.6 79-99 fL Mean Corpuscular Hemoglobin 30.7 27.0-33.0 pg Mean Corpuscular Hemoglobin Concent 33.5 32.0-36.0 g/dL Red Cell Distribution Width 15.5 11.0-15.5 % Platelet Count 351 130-400 K/uL Mean Platelet Volume 11.2 H 7.5-10.5 fL Immature Granulocyte % (Auto) 0.4 0-1 % Neutrophils (%) (Auto) 74.5 40.0-77.0 % Lymphocytes (%) (Auto) 12.7 L 21.0-51.0 % Monocytes (%) (Auto) 6.9 3.0-13.0 % Eosinophils (%) (Auto) 4.5 0.0-8.0 % Basophils (%) (Auto) 1.0 0.0-5.0 % Neutrophils # (Auto) 5.9 1.8-7.7 K/uL Lymphocytes # (Auto) 1.0 1.0-4.8 K/uL Monocytes # (Auto) 0.6 0.1-1.0 K/uL Eosinophils # (Auto) 0.36 0.00-0.70 K/uL Basophils # (Auto) 0.08 0.00-0.20 K/uL Absolute Immature Granulocyte (auto 0.03 0-1 K/uL Nucleated Red Blood Cells 0.0 0.0-0.19 % Sodium Level 140 136-145 mmol/L Potassium Level 4.1 3.5-5.1 mmol/L Chloride Level 105 101-111 mmol/L Carbon Dioxide Level 26 21-32 mmol/L Blood Urea Nitrogen 13 7-18 mg/dL Creatinine 0.8 0.5-1.3 mg/dL Glomerular Filtration Rate Calc 92 >90 mL/min Random Glucose 95 70-105 mg/dL Total Calcium 8.6 8.5-10.1 mg/dL Magnesium Level 2.00 1.80-2.40 mg/dL Total Bilirubin 0.7 0.2-1.0 mg/dL Aspartate Amino Transf (AST/SGOT) 12 10-37 U/L Alanine Aminotransferase (ALT/SGPT) 18 12-78 U/L Alkaline Phosphatase 89 50-136 U/L Total Protein 6.6 6.0-8.3 g/dL Albumin 3.1 L 3.5-5.0 g/dL Triglycerides Level 144 30-200 mg/dL Cholesterol Level 132 <200 mg/dL LDL Cholesterol 81 0-99 mg/dL HDL Cholesterol 31 29-71 mg/dL Thyroid Stimulating Hormone (TSH) 2.52 # 0.36-3.74 uIU/mL Troponin I High Sensitivity 7 4-75 ng/L Urine Color LIGHT-YELLOW YELLOW Urine Appearance CLEAR CLEAR Urine pH 6.5 5.0-8.0 Urine Specific [place] 1.006 1.001-1.031 Urine Protein NEGATIVE NEGATIVE mg/dL Urine Glucose (UA) NEGATIVE NEGATIVE mg/dL Urine Ketones NEGATIVE NEGATIVE mg/dL Urine Occult Blood NEGATIVE NEGATIVE Urine Nitrate NEGATIVE NEGATIVE Urine Bilirubin NEGATIVE NEGATIVE mg/dL Urine Urobilinogen 0.2 0.2-1.0 mg/dL Urine Leukocyte Esterase NEGATIVE NEGATIVE Pavan/uL Prothrombin Time 11.2 9.6-11.6 SEC Prothromb Time International Ratio 1.06 0.85-1.15 Activated Partial Thromboplast Time 26.8 26.3-35.5 SEC Total Creatine Kinase 76 21-232 U/L Current Medications Medications (Trade) Dose Ordered Sig/Amos Route PRN Reason Start Time Stop Time Status Last Admin Dose Admin Acetaminophen (TYLenol 325MG TAB) 325 mg Q4H PRN PO MILD PAIN (1-3) \ HEADACHE 01/20/25 08:30 02/19/25 08:29 01/20/25 08:40 325 MG Acetaminophen (TYLenol 325MG TAB) 650 mg Q4H PRN PO TEMPERATURE GREATER THAN 101.5 01/19/25 12:00 02/18/25 11:59 Aspirin (Aspirin 81mg Ec Tab) 81 mg DAILY PO 01/20/25 09:00 02/19/25 08:59 01/20/25 08:39 81 MG Atorvastatin Calcium (LIPItor 20MG) 20 mg DAILY PO 01/20/25 09:00 02/19/25 08:59 01/20/25 08:40 20 MG Hydralazine HCl (APRESOLine 20MG INJ) 5 mg Q4H PRN IV ADMINISTER FOR SBP > 160 01/19/25 12:00 02/18/25 11:59 Lactulose (Constulose 20gm/ 30ml Udcup) 20 gm BID PRN PO CONSTIPATION 01/19/25 12:00 02/18/25 11:59 Magnesium Sulfate 50 ml @ 0 mls/hr PROTOCOL PRN IV low mag level 01/19/25 12:00 02/18/25 11:59 Metoprolol Tartrate (loprESSOR) 12.5 mg BID PO 01/19/25 21:00 02/18/25 20:59 01/20/25 08:41 12.5 MG Morphine Sulfate (morPHINE 2MG SYG) 2 mg Q4H PRN IVP chest pain 01/19/25 12:30 01/26/25 12:29 Nitroglycerin (Nitroglycerin 1gm Oint) 1 inch Q8H TD 01/19/25 12:00 02/18/25 11:59 01/20/25 04:23 1 INCH Nitroglycerin (Nitrostat) 0.4 mg AD PRN SL CHEST PAIN 01/19/25 12:30 02/18/25 12:29 Ondansetron HCl (zoFRAN 4MG INJ) 4 mg Q6H PRN IVP NAUSEA/VOMITING 01/19/25 12:00 02/18/25 11:59 Potassium Chloride 100 ml @ 100 mls/hr AD PRN IV POTASSIUM PROTOCOL 01/19/25 12:00 02/18/25 11:59 Potassium Chloride (K-Dur/Klor-Con 20meq) 20 meq AD PRN PO POTASSIUM PROTOCOL 01/19/25 12:00 02/18/25 11:59 Potassium Chloride (KCl 10% Elixir 20meq/15ml) 20 meq AD PRN PO POTASSIUM PROTOCOL 01/19/25 12:00 02/18/25 11:59 DIAGNOSTICS / RADIOLOGY: [ ] ASSESSMENT: Atypical chest pain POA Hypertension Urgency POA CAD with Heart stent POA Hyperlipidemia POA adult obesity Class II PLAN: Admit: Medical with tele monitoring condition: Guarded Status: Full code IVF: ehp Consultants cardiology's ACS protocol : Aspirin 81 mg now then daily, will start Metoprolol 12.5 mg bid Atorvastatin 20mg po HS nitroglycerin 0.4 gm SL as needed for chest pain Procedure Lexiscan we will follow-up results Imaging echo to elevate LV function noted LV EF 50-55% Labs cbc, cmp, mag+ Replace electrolytes as needed as per protocol to keep potassium above 4.0 magnesium 2.0. Home medications pending to be reviewed by RN nurse. Pain management: morphine 2mg IV PRN chest pain oxygen supplemental as needed for chest pain Supportive measures: DVT ppx, GI ppx all questions answered Supervising MD: Dr. Brady Hummel c/d This document was generated in part using voice recognition software, occasional wrong word or sound alike substitutions may have occurred due to the inherent limitations of voice recognition software. Read the chart carefully and recognize using context, where the substitutions have occurred. Although every effort was made to edit the content, shook machine operator and typing errors may occur ATTESTATION BY PHYSICIAN I have seen and examined the patient. I reviewed the documentation, medical decision making, and treatment plan as noted by the mid-level provider above. I agree with the findings and plan of care. GREG ALONSO MD, ELIZABETH NP Jan 20, 2025 09:00
[2025-01-20] MEDS: REGADENOSON 0.4 MG/5 ML PF SYG IVP ONE (10:33)
[2025-01-20 11:35] VITALS: BP 116/68; PULSE 64; RESP 18; TEMP 97.4
--- NOTE | 2025-01-20 15:45 | HMCSR ---
APPROVED REPORT Height: 5 ft 10in Weight: 201 lbs TEST INDICATIONS Chest Pain The imaging protocol used to acquire images was Rest Tc-99m/stress Tc-99m 1 day Consent: The procedure was explained and understood by the patient. Informerd consent was witnessed Jeromy Greenberg RN First, low dose rest was performed then high dose stress. RESTING DATA: The resting ekg shows: NSR Rest SPECT myocardial perfusion imaging was performed in supine position minutes following the intra venous injection of 11 mCi of Tc-99 Sestamibi. Time of rest injection: 09:10: Date: 01/20/2025 PHARMACOLOGIC STRESS: Pharmacologic stress test was performed by injecting regadenoson 0.4 mg IV push followed by the intra venous injection of 30 mCi of Tc-99 Sestamibi. Time of stress injection: 10:55: Date: 01/20/2025 Heart Rate at time of stress injection: 60 bpm. Gated Stress SPECT was performed 60 minutes after stress injection. The images were gated to evaluate regional wall motion and calculate left ventricular ejection fracti on. STRESS DETAILS Reason for Termination: Infusion complete Stress Symptoms: Dyspnea, Chest heaviness Max HR Achieved: 81 bpm % of APMHR Achieved: 66 Max Blood Pressure: 157/81 mmHg Stress ECG: NSR LV PERFUSION Predominantly fixed defect of the inferior inferoseptal sharif. No evidence of ischemia. EF 73% Abnormal low risk stress test without ischemia Conclusion Predominantly fixed defect of the inferior inferoseptal sharif. No evidence of ischemia. EF 73% Abnormal low risk stress test without ischemia
[2025-01-20 16:00] VITALS: BP 121/60; PULSE 55; RESP 18; TEMP 97.6
--- NOTE | 2025-01-20 16:51 | NUR ---
DR. EVANGELISTA PER DR. JEAN CARLOS RUELAS TO GO HOME. TO DC WITH METROPOLOL 12.5MG PO BID AND ADD ISOSORBRIDE 30MG PO DAILY. LYNNE COX MADE AWARE.
--- NOTE | 2025-01-20 17:29 | DS ---
Discharge Summary Hospital Course Summary: PCP: Dr Db Celaya admission date: 01/19/25 CC: Chest pain Primary metal milling machine operator's Dr. Leblanc This is a 74-year-old male with a significant medical history of CAD with heart stents x2, hyperlipidemia, pacemaker presents in ED with chief complaints of chest pain. Onset started earlier this morning 8:00 a.m. patient reports he was up for the morning sitting we he started with chest pain. Location midsternal pain radiates across to each arm. Positive for diaphoretic while he was in pain. Denies shortness a breath, palpitations, dizziness, nausea and vomiting. Reports taking nitroglycerin sublingually has some improvement prior coming to ED. Patient reports since yesterday he was feeling due he usually does4 miles on his bicycle yesterday he was only able to to [place] he was not feeling his normal. ER workup first set of troponin negative. Blood pressure systolic pressure: 170's patient stated he usually run in the 120's. 01/20 The patient is scheduled for Lexiscan today, appreciate metal milling machine operator's input. We will wait for results if patient will need further intervention. Primary nurse reports no acute events overnight The patient was cleared by metal milling machine operator's Lexiscan was done recommends patient to be discharged on metoprolol 12.5 mg p.o. twice a day and isosorbide 30 mg p.o. daily patient to follow-up with metal milling machine operator's one-week. Patient denied chest pain, palpitations, dizziness or shortness on breath. All questions were addressed. Procedure(s): REASON: CHEST PAIN ORDERING PHYSICIAN: DANGELO OMALLEY MD PROCEDURE: CARD JAMSHID - NM LEXISCAN CARDIOLITE APPROVED REPORT Height: 5 ft 10in Weight: 201 lbs TEST INDICATIONS Chest Pain The imaging protocol used to acquire images was Rest Tc-99m/stress Tc-99m 1 day Consent: The procedure was explained and understood by the patient. Informerd consent was witnessed by Hailee Greenberg RN First, low dose rest was performed then high dose stress. RESTING DATA: The resting ekg shows: NSR Rest SPECT myocardial perfusion imaging was performed in supine position minutes following the intravenous injection of 11 mCi of Tc-99 Sestamibi. Time of rest injection: 09:10: Date: 01/20/2025 PHARMACOLOGIC STRESS: Pharmacologic stress test was performed by injecting regadenoson 0.4 mg IV push followed by the intravenous injection of 30 mCi of Tc-99 Sestamibi. Time of stress injection: 10:55: Date: 01/20/2025 Heart Rate at time of stress injection: 60 bpm. Gated Stress SPECT was performed 60 minutes after stress injection. The images were gated to evaluate regional wall motion and calculate left ventricular ejection fraction. STRESS DETAILS Reason for Termination: Infusion complete Stress Symptoms: Dyspnea, Chest heaviness Max HR Achieved: 81 bpm % of APMHR Achieved: 66 Max Blood Pressure: 157/81 mmHg Stress ECG: NSR LV PERFUSION Predominantly fixed defect of the inferior inferoseptal sharif. No evidence of ischemia. EF 73% Abnormal low risk stress test without ischemia Conclusion Predominantly fixed defect of the inferior inferoseptal sharif. No evidence of ischemia. EF 73% Abnormal low risk stress test without ischemia DICTATED BY: DANGELO OMALLEY MD DATE: 01/20/25 1000 ELECTRONICALLY SIGNED BY: DANGELO OMALLEY MD DATE: 01/20/25 1545 Assessment/Plan: discharged dx's; Atypical chest pain POA Hypertension Urgency POA CAD with Heart stent POA Hyperlipidemia POA adult obesity Class II PLAN: ADMISSION DATE: 01/20/2025 DISCHARGE DATE: 01/19/2025 DISPOSITION: Home CONDITION: Stable DIRECT SERVICE WORKER(S): [employer] FOLLOW UP APPOINTMENT(S): [employer] Dr Omalley one wk. PROCEDURES: Lexiscan IMAGING (S) report attached to summary : Echo MICROBIOLOGY: report attached to summary; none ACTIVITY: ab enid HOME MEDICATIONS remain the same CHANGES ON HOME MEDICATIONS none NEW MEDICATIONS written prescription: Metoprolol 12.5 bid and Isosorbide 30 mg p o daily TEACHING: Side effects adverse reactions of new medication. Emergency instructions: The patient was instructed to present to the nearest Emergency Department or call 911 should their symptoms return or worsen. Discharge Instructions: REASON: chest pain ORDERING PHYSICIAN: LYNNE NOGUERA NP PROCEDURE: ECHO CMP - ECHO 2-D COMPLETE APPROVED REPORT EXAM: Two-dimensional and M-mode echocardiogram with Doppler and color Doppler. INDICATION ICD: Chest Pain 2D Dimensions RVDd 2.9 cm LVEF(%) 57.0 (>50%) LVED Vol(simp.) 110.0 mL IVSd 1.1 (0.7-1.1cm) FS(%) 30 % LVES Vol(simp.) 52.0 mL LVDd 4.5 (3.8-5.6cm) LA (2D) 3.7 (1.6-4.0cm) LVEF(%, simp.) 53 % PWd 1.1 (0.7-1.1cm) Ao Root(2D) 4.1 (2.0-3.7cm) LA ESV INDEX (BP) 22.60 mL/m2 IVSs 1.1 cm LVOT diam 2.6 (1.8-2.4cm) LVDs 3.1 (2.5-4.0cm) IVC diam 1.3 cm PWs 1.1 cm Deformation Strain Apical 4 -19.5 % Apical 2 -18.4 % Apical 3 -22.5 % Global Strain -20.1 % M-Mode Dimensions EPSS 0.9 cm LA (MM) 3.6 (1.6-4.0cm) Ao Root(MM) 4.6 (2.0-3.7cm) Aortic Valve AoV Vmax 1.1 m/s Ao Peak GR 4.5 mmHg LVOT Vmax 1.0 m/s AoV VTI 0.2 m Ao Mean GR 2.6 mmHg LVOT VTI 0.21 m USAMA (VMAX) 4.89 cm2 USAMA (VTI) 5.5 cm2 Mitral Valve MV E Vmax 77.5 cm/s DECEL Time 230 ms MV A Vmax 98.7 cm/s P 1/2 T 55 ms E/A ratio 0.8 MVA (PHT) 4.0 cm2 TDI E/E' Medial 13.3 E/E' Lateral 11.4 Medial E' Peak V 5.83 cm/s Lateral E' Peak V 6.79 cm/s Pulmonary Valve PV Vmax 1.0 m/s PV VTI 0.22 m PV Mean GR 2.2 mmHg PV Peak GR 3.7 mmHg Tricuspid Valve RAP (EST) 3 mmHg RVSP 3.0 mmHg Left Ventricle The left ventricle is normal size. GLS -20.0% There is normal left ventricular wall thickness. LVEF is 50-55%. The left ventricular diastolic function is normal. Right Ventricle The right ventricle is normal size. The right ventricular systolic function is normal. Atria The left atrium size is normal. The right atrium size is normal. Aortic Valve The aortic valve is normal in structure. No aortic regurgitation is present. There is no aortic valvular stenosis. Mitral Valve Mitral valve leaflets open well. Posterior mitral leaflet is mildly calcified. Mitral regurgitation is trace. There is no mitral valve stenosis. Tricuspid Valve The tricuspid valve is normal in structure. There is no tricuspid valve regurgitation noted. Pulmonic Valve The pulmonary valve is normal in structure. There is no pulmonic valvular regurgitation. Great Vessels The aortic root measures 4.1 cm in maximum AP dimension. The IVC is normal in size and collapses >50% with inspiration. Pericardium There is no pericardial effusion. Other Information Quality : Adequate Rhythm : NSR Conclusion LVEF is 50-55%. The left ventricular diastolic function is normal. The aortic root measures 4.1 cm in maximum AP d Home Medications: Active Scripts Aspirin (ASPIRIN 81MG CHEW TAB) 81 Mg Tab.chew, 81 MG PO DAILY, #30 TAB.CHEW Prov:CHECO FLORES MD 04/25/22 Reported Medications Atorvastatin Calcium (LIPITOR) 20 Mg Tab, 1 TAB PO DAILY for 30 Days, #30 TAB 0 Refills 01/19/25 Discontinued Scripts Clopidogrel Bisulfate (Plavix) 75 Mg Tablet, 75 MG PO DAILY for 30 Days, #30 TAB Prov:CHECO FLORES MD 04/25/22 Continued Medications: Aspirin (Aspirin 81MG Chew Tab) 81 Mg Tab.chew 81 MG PO DAILY, #30 TAB.CHEW Atorvastatin Calcium (Lipitor) 20 Mg Tab 1 TAB PO DAILY for 30 Days, #30 TAB 0 Refills Time spent arranging discharge: 31-60 minutes ATTESTATION BY PHYSICIAN I have seen and examined the patient. I reviewed the documentation, medical decision making, and treatment plan as noted by the mid-level provider above. I agree with the findings and plan of care. GREG ALONSO MD, ELIZABETH NP Jan 20, 2025 17:29
--- NOTE | 2025-01-20 18:44 | NUR ---
DISCHARGE DC'D IV. NO COMPLICATIONS. PRESCRIPTIONS GIVEN TO PT. AWARE TO FOLLOW UP WITH PCP AND LINTER OPERATOR. STATES HE HAS AN APPOINTMENT WITH LINTER OPERATOR ALREADY. ANSWERED ALL QUESTIONS DENIES CHEST PAIN AT THIS TIME.
== END 2025-01-20 19:03 | disposition home or self-care (01) ==
LOC: EDH 09:50 → OBSVTOIN 11:57 → INTOOBSV 11:57 → EDHIP 11:57 → UNDOADMOB 11:57 → EDHIP 18:20 → 3CH 18:20 → EDHIP 01-20 09:00 → 3CH 01-20 09:00
PROVIDERS: ADMIT Internal Medicine; ATTEND Internal Medicine
DX: R07.89 Other chest pain (principal); I16.0 Hypertensive urgency; I25.10 Atherosclerotic heart disease of native coronary artery without angina pectoris; E78.5 Hyperlipidemia, unspecified; I10 Essential (primary) hypertension; E66.812 Obesity, class 2; Z95.5 Presence of coronary angioplasty implant and graft; Z95.0 Presence of cardiac pacemaker; Z79.899 Other long term (current) drug therapy; Z98.890 Other specified postprocedural states
CPT/HCPCS: 99285; 82550; 83735 ×2; 84484 ×3; 80048; 85025 ×2; 85610; 85730; 81003; 36415 ×2; 71045; 93306; 93356; 93005; 84443; 80061; 80053; 93017; 78452; G0378 ×10; J2785; A9500 ×2

== ENCOUNTER → 2025-01-26 | Outpatient (CLI) | payer MEDICARE ==
[~2025-01-26] MED LIST changes: +ATOR10 PO; -CLOP-31 PO
--- NOTE | 2025-01-26 20:23 | HMCIMG ---
EXAM: CR Cervical spine, 3 View. CLINICAL HISTORY: Essential (primary) hypertension COMPARISON: None provided. FINDINGS: BONES: Osteopenia No fracture noted DISCS/DEGENERATIVE CHANGES: Mild to moderate diffuse degenerative changes SOFT TISSUES: No prevertebral soft tissue swelling. The visualized lung apices are clear. IMPRESSION: 1. Mild to moderate diffuse degenerative changes 2. Osteopenia 3. No fracture noted /[place]
--- NOTE | 2025-01-26 20:49 | HMCIMG ---
EXAM: CR Thoracic Spine, 2 View. CLINICAL HISTORY: Essential (primary) hypertension COMPARISON: None provided. FINDINGS: BONES: Generalized osteopenia DISCS / DEGENERATIVE CHANGES: Mild degenerative changes SOFT TISSUES: The paraspinal soft tissue lines are unremarkable. The visualized lungs are clear. MISCELLANEOUS: Visualization of the upper thoracic spine is limited on the lateral view by overlying structures. IMPRESSION: 1. Generalized osteopenia 2. Mild degenerative changes /[place]
== END | disposition home or self-care (01) ==
LOC: RAH 10:17
PROVIDERS: ATTEND Internal Medicine Cardiovascular Disease
DX: M47.813 Spondylosis without myelopathy or radiculopathy, cervicothoracic region (principal); M85.88 Other specified disorders of bone density and structure, other site; I10 Essential (primary) hypertension; R07.9 Chest pain, unspecified
CPT/HCPCS: 72040; 72070

== ENCOUNTER → 2025-05-11 | Outpatient (CLI) | payer MEDICARE ==
--- NOTE | 2025-05-11 15:25 | HMCIMG ---
DOUBLE CONTRAST UPPER GI SERIES: CLINICAL HISTORY: Heartburn/chest. Finding: The study was performed using provocative maneuvers After swallowing effervescent crystal and thick barium, there is no definite intrinsic or extrinsic lesion seen in the esophagus. There is mild right 1 esophageal reflux. There is no hiatal hernia. The stomach is normal in size, shape, and configuration. The rugal folds appear to be normal. The duodenal bulb, duodenal sweep, and upper jejunum appear to be normal. There is a loop recorder seen in the left mid chest. Fluoroscopy time: 0.9 minutes IMPRESSION: Grade 1 esophageal reflux Otherwise NORMAL DOUBLE CONTRAST UPPER GI SERIES.
== END | disposition home or self-care (01) ==
LOC: RAH 09:02
PROVIDERS: ATTEND Internal Medicine Gastroenterology
DX: K21.9 Gastro-esophageal reflux disease without esophagitis (principal); R07.9 Chest pain, unspecified
CPT/HCPCS: 74240